=== PATIENT | female | born 1985 | race African-American/Black ===

== ENCOUNTER 2018-08-29 07:30 | Inpatient (IN) | payer OTHER ==
[~2018-08-29] VITALS: Ht 157.5 cm; Wt 81.9 kg
[2018-08-31 05:37] VITALS: BP 118/78; PULSE 96; RESP 18; Ht 157.5 cm; Wt 81.9 kg
[2018-08-31] MEDS ORDERED: PREN1TAB13 PO (05:46)
[2018-08-31] MEDS: LACTATED RINGER'S 1,000 ML IV SCH ×2 (05:58→08:28)
[2018-08-31] MEDS ORDERED: CEFAZOLIN 2 GM/50 ML (PMX) 50 ML IVPB SCH (06:00)
[2018-08-31] MEDS ORDERED: OXYTOCIN 30 UNITS/LR 500 ML IV PRN ×2 (06:00→16:00)
[2018-08-31] MEDS ORDERED: METHYLERGONOVINE 0.2 MG INJ IM PRN ×2 (06:00→16:00)
[2018-08-31] MEDS ORDERED: OXYTOCIN 30 UNITS/LR 500 ML IV SCH (06:00)
[2018-08-31] MEDS ORDERED: CARBOPROST 250 MCG INJ IM PRN ×2 (06:00→16:00)
[2018-08-31] MEDS ORDERED: MISOPROSTOL 200 MCG TAB PR PRN ×2 (06:00→16:00)
--- NOTE | 2018-08-31 07:24 | PREAC ---
Date/Time of Note Date/Time of Note DATE: 08/31/18 TIME: 07:23 Anesthesia Eval and Record Evaluation Time Pre-Procedure Interview DATE: 08/31/18 TIME: 07:23 Age 33 Sex female NPO: 8 hrs Preoperative diagnosis with previous C/S Planned procedure Repeat C/S Past Medical History Past Medical History: None Surgery & Anesthesia Issues No known issue Meds Anticoagulation: No Beta Manuel within 24 hr: No Reason Beta Manuel not given: Pt. not on B-Manuel Reported Medications Pnv95/Ferrous Fumarate/FA ( Vitamins Tablet) 1 Each Tablet, 1 EACH PO, TAB 08/31/18 Current Medications Lactated Ringer's 1,000 ml @ 125 mls/hr Q8H IV Last administered on 08/31/18at 05:58; Admin Dose 125 MLS/HR; Start 08/31/18 at 05:46 Cefazolin Sodium/ Dextrose 50 ml @ 100 mls/hr ONCE IVPB ; Start 08/31/18 at 06:00 Oxytocin/Lactated Ringer's 500 ml @ 125 mls/hr POST IV ; Start 08/31/18 at 06:00 Oxytocin/Lactated Ringer's 500 ml @ 0 mls/hr ONCE PRN IV .VAGINAL BLEEDING; Start 08/31/18 at 06:00 Methylergonovine Maleate (Methergine) 0.2 mg ONCE PRN IM .VAGINAL BLEEDING; Start 08/31/18 at 06:00 Carboprost Tromethamine (Hemabate) 250 mcg ONCE PRN IM .VAGINAL BLEEDING; Start 08/31/18 at 06:00 Misoprostol (Cytotec) 1,000 mcg ONCE PRN IN .VAGINAL BLEEDING; Start 08/31/18 at 06:00 Meds reviewed: Yes Allergies Coded Allergies: No Known Allergy (Unverified , 08/31/18) Allergies Reviewed: Yes Labs/Studies Labs Reviewed: Reviewed by anesthesiologist Result Diagram: 08/31/18 0555 Laboratory Tests 08/31/18 05:55 Blood Bank Test 08/31/18 05:55 Antibody Screen NEGATIVE Blood Type O POSITIVE Rh Immune Globulin Candidate NO test: Positive Pre-procedure Exam Last vitals Vital Signs Date Temp Pulse Resp B/P (MAP) Pulse Ox O2 O2 Flow FiO2 Time Delivery Rate 08/31/18 99.0 96 18 118/78 Room Air 05:37 (91) Airway: Adequate mouth opening Mallampati: Mallampati II Teeth: Normal Lung: Normal Heart: Normal ASA Physical Status ASA physical status: 2 Emergency: None Planned Anesthetic Neuraxial: Spinal Planned Pain Management Sub-arachniod narcotics Pre-operative Attestations Prior to commencing anesthesia and surgery, the patient was re-evaluated, there was verification of: *The patient's identity *The results of appropriate recent lab work and preoperative vital signs *The above evaluation not changing prior to induction *Anesthetic plan, risk benefits, alternative and complications discussed with patient/family; questions answered; patient/family understands, accepts and wishes to proceed. SANKET BROOKS MD Aug 31, 2018 07:24
[2018-08-31] MEDS ORDERED: morphine SULFATE/PF (10 MG/10 ML) INJ ONE (13:44)
[2018-08-31] MEDS ORDERED: OXYTOCIN 30 UNITS/LR 500 ML IV ONE (13:44)
[2018-08-31] MEDS ORDERED: EPHEDrine 25 MG/5 ML SYG ONE (13:45)
[2018-08-31] MEDS ORDERED: METOCLOPRAMIDE 10 MG INJ ONE (13:45)
[2018-08-31] MEDS ORDERED: ONDANSETRON 4 MG INJ ONE ×2 (13:45→16:00)
[2018-08-31] MEDS ORDERED: OXYTOCIN 10 UNIT INJ ONE ×2 (13:45→14:38)
[2018-08-31] MEDS ORDERED: PHENYLephrine 10 MG INJ ONE (14:05)
[2018-08-31] MEDS ORDERED: LACTATED RINGER'S 1,000 ML IV SCH (15:55)
[2018-08-31] MEDS ORDERED: DIPHENHYDRAMINE 50 MG INJ IV PRN ×2 (16:00)
[2018-08-31] MEDS ORDERED: morphine 2 MG INJ IV PRN ×2 (16:00)
[2018-08-31] MEDS ORDERED: EPHEDrine SULFATE 50 MG/5 ML SYG IV PRN (16:00)
[2018-08-31] MEDS ORDERED: ONDANSETRON 4 MG INJ IV PRN ×2 (16:00)
[2018-08-31] MEDS ORDERED: NALOXONE (0.4 MG/ML) INJ IV PRN (16:00)
[2018-08-31] MEDS ORDERED: morphine SULFATE/PF (10 MG/10 ML) INJ SPINAL ONE (16:00)
[2018-08-31] MEDS ORDERED: ZOLPIDEM 5 MG TAB PO PRN (16:00)
[2018-08-31] MEDS ORDERED: OXYCODONE/ACETAMINOPHEN (5/325) TAB PO PRN (16:00)
[2018-08-31] MEDS ORDERED: LANOLIN HPA 1 PKT TOP PRN (16:00)
[2018-08-31] MEDS: KETOROLAC 30 MG INJ IV PRN (16:15)
[2018-08-31 18:00] VITALS: BP 117/61; PULSE 78; RESP 18
[2018-08-31 18:25] VITALS: BP 115/61; PULSE 82; RESP 16
--- NOTE | 2018-08-31 19:13 | PAC ---
Date/Time of Note Date/Time of Note DATE: 08/31/18 TIME: 19:12 Post-Anesthesia Notes Post-Anesthesia Note Last documented vital signs Vital Signs Date Temp Pulse Resp B/P (MAP) Pulse Ox O2 O2 Flow FiO2 Time Delivery Rate 08/31/18 82 16 115/61 97 Room Air 18:25 (79) 08/31/18 97.8 18:00 Activity: WNL Respiratory function: WNL Cardiovascular function: WNL Mental status: Baseline Pain reasonably controlled: Yes Hydration appropriate: Yes Nausea/Vomiting absent: Yes SANKET BROOKS MD Aug 31, 2018 19:12
--- NOTE | 2018-08-31 19:46 | OPPN ---
Date/Time of Note Date/Time of Note DATE: 08/31/18 TIME: 19:42 Operative Report Planned Procedure Free Text/Dictation christos breech presentation Procedure date Aug 31, 2018 Procedure(s) primary low transverse c/s Performed by see signature line Wall And Floor Tiler: MELVIN MARTIN MD 2nd Wall And Floor Tiler none Anesthesiologist: SANKET BROOKS MD Pre-procedure diagnosis IUP 39w2d breech presentation [id number] Anesthesia Type: Xxpjn3c spinal Post-Procedure Post-procedure diagnosis delivered normal male Findings Live Baby [m], Apgars [6] and [9], weight [6lb], position [RSA], [breech presentation] presentation [none]cord. Estimated Blood Loss: 500 - 600 mls Specimen(s) none Grafts/Implant(s) none Complication(s) none GIULIANO FELIPE MD Aug 31, 2018 19:46
--- NOTE | 2018-08-31 19:51 | HP ---
Date/Time of Note Date/Time of Note DATE: 08/31/18 TIME: 19:46 OB - History Hx of Present Free Text/Dictation 33y.o at 39w2d here for primary c/s for breech presentation Her course was unevenful except presentation remain to be breech presentation. admitted for elective primary c/s for breech presentation. Chief Complaint: breech presentation Estimated Due Date: Sep 05, 2018 : 1 Para: 0 Spontaneous : 0 Therapeutic : 0 Care: Good Care Ultrasounds: Normal mid trimester US Obstetrical Complications: None Medical Complications: None Past Family/Social History * Past Medical, Surgical, Family and Obstetric Histories reviewed from chart. Blood Type: Unknown Rubella: immune RPR/VDRL: Negative GBS Status: Negative HBsAG: Negative OB Admission Exam Vital Signs Vital Signs Vital Signs Date Temp Pulse Resp B/P (MAP) Pulse Ox O2 O2 Flow FiO2 Time Delivery Rate 08/31/18 82 16 115/61 97 Room Air 18:25 (79) 08/31/18 97.8 18:00 Physical Exam HEENT: WNL Heart: Rhythm Normal Lungs: Clear, Equal Abdomen: WNL Extremities: Normal Reflexes: Normal Cervical Dilatation: other Effacement: Other Station: Other Membranes: Intact Amniotic Fluid: Unevaluable Heart Rate: 140's Accelerations: Accelerations Present Decelerations: No Decelerations Varibility: Moderate Contractions on Admission: None Last 72 hours Lab Results CBC & BMP 08/31/18 05:55 OB Assessment/Plan Other Assessment: IUP 39w2d breech presentation Plan: Section GIULIANO FELIPE MD Aug 31, 2018 19:51
[2018-08-31 19:55] VITALS: BP 95/54; PULSE 95; RESP 19
[2018-08-31] MEDS: SENNA/DOCUSATE NA (8.6MG/50MG) TAB PO SCH (21:00)
--- NOTE | 2018-09-01 00:42 | OPR ---
DATE OF OPERATION: 08/31/2018 PREOPERATIVE DIAGNOSIS: , 39 weeks 2 days, breech presentation. POSTOPERATIVE DIAGNOSIS: , 39 weeks 2 days, breech presentation. Bandar breech. PROCEDURE: Primary low transverse section. ANESTHESIA: Spinal. ANESTHESIOLOGIST: Luis Edwards MD SURGEON: Katelyn Mcnally MD SPECIAL EDUCATION ADMINISTRATOR: Darci Rivera MD ESTIMATED BLOOD LOSS: Approximately 520. PROCEDURE: Under proper induction of spinal anesthesia, the patient was placed in the frog position. Sarabia catheter was introduced into the bladder under sterile condition and repositioned to supine. Abdominal wall was prepped and draped in usual aseptic manner. A Pfannenstiel incision was made. T he incision was carried down through the subcutaneous tissue to the anterior recti fascia, which was incised transversely in length of the incision. Fascial flap was created by blunt and sharp dissecti on of tendinous attachment cephalad and caudad to rectus muscle split, and the peritoneal cavity was entered. Low portion of the uterus was exposed. A transverse incision was made above the uterovesic al reflection. Incision was carried down layer by layer, reached the amniotic membrane, ruptured, an d revealed clear amniotic fluid. Normal male infant was born from the right sacral anterior position with assisted breech extraction. The cord was clamped after the milk down because the tone was down in patients so right away then handed to the respiratory care personnel without waiting 30 sec onds instead milked down the blood and cut and handed to the respiratory care personnel, and the cord blood was obtained. After the section of cord was obtained, placenta removed manually. Cavity was completely explored after uterus was exteriorized. Uterine incision was closed using #1 chromic catg ut in continuous manner, second layer using 0 chromic catgut in continuous manner thus imbricating th e first layer of closure. Uterus was relocated into the abdominal cavity after irrigation done, and the uterine incisional site was checked, which was intact and sponge count correct. The parietal per itoneum closed with 0 chromic catgut in continuous manner and muscle closed with 0 chromic catgut in continuous manner. After adequate hemostasis done and the fascia closed with #1 Vicryl in continuous manner in 2 segments. Subcutaneous layer was irrigated. This layer was approximated with 2-0 plain in continuous manner after the adequate hemostasis was secured. Skin closed with 3-0 Monocryl in flor bcuticular manner. After the Steri-Strip applied, pressure dressing applied. Estimated blood loss a pproximately 520 mL. The patient withstood procedure and was sent to the recovery room in stable con dition. Urine output approximately 200 mL. Clear. Dictated By: KATELYN BARRETT/LUIS Conf#: [id number] DID#: [id number] CC: KATELYN MCNALLY MD;*EndCC*
[2018-09-01] MEDS: LACTATED RINGER'S 1,000 ML IV SCH ×4 (03:19→21:46)
[2018-09-01 04:00] VITALS: BP 101/54; PULSE 97; RESP 21
[2018-09-01] MEDS: KETOROLAC 30 MG INJ IV PRN (05:32)
[2018-09-01 07:30] VITALS: BP 111/58; PULSE 85; RESP 18
[2018-09-01] MEDS: SENNA/DOCUSATE NA (8.6MG/50MG) TAB PO SCH ×2 (09:00→21:23)
--- NOTE | 2018-09-01 09:07 | OPPN ---
Date/Time of Note Date/Time of Note DATE: 09/01/18 TIME: 09:03 Anesthesia Follow up Anesthesia Follow up Last documented vital signs Vital Signs Date Temp Pulse Resp B/P (MAP) Pulse Ox O2 O2 Flow FiO2 Time Delivery Rate 09/01/18 99.0 97 21 101/54 97 Room Air 04:00 (70) Respiratory function: WNL Cardiovascular function: WNL Comments Postoperative pain in good control with spinal duramorph. Vital signs stable. No specific complaint from patient. SANKET BROOKS MD Sep 01, 2018 09:07
[2018-09-01 11:30] VITALS: BP 121/64; PULSE 84; RESP 18
[2018-09-01 15:45] VITALS: BP 107/55; PULSE 82; RESP 18
[2018-09-01 16:00] VITALS: BP 122/65; PULSE 74; RESP 20
[2018-09-01] MEDS: IBUPROFEN 600 MG TAB PO SCH ×2 (18:16→23:53)
[2018-09-01 19:45] VITALS: BP 110/72; PULSE 81; RESP 18
[2018-09-02 04:10] VITALS: BP 106/54; PULSE 86; RESP 18
[2018-09-02] MEDS: LACTATED RINGER'S 1,000 ML IV SCH (05:46)
[2018-09-02] MEDS: IBUPROFEN 600 MG TAB PO SCH ×3 (05:59→17:55)
[2018-09-02 08:30] VITALS: BP 100/57; PULSE 79; RESP 17
[2018-09-02] MEDS: SENNA/DOCUSATE NA (8.6MG/50MG) TAB PO SCH ×2 (09:09→22:20)
[2018-09-02] MEDS: OXYCODONE/ACETAMINOPHEN (5/325) TAB PO PRN ×3 (13:07→22:20)
--- NOTE | 2018-09-02 15:05 | PD.PPDC ---
SUPPORT MANAGER Discharge Instruction Diagnosis Nboei5Iu Final Diagnosis: Innyj9a S/P Condition Lvhlo8Po Patient Condition: Gqjpv4c Stable Diet Wxvjq5Ka Diet: Swqtz3x Resume Regular Diet Activity/Restrictions Afrkw2Kj Activity: Mvern4v May Shower Xaqcw5Pk Restrictions: Xggrm0j No Sexual Activity Nothing in the Vagina No [place] No Tampons, douche Follow-up Follow-up with Physician: 2, Week/Weeks Return to clinic for Zftsk3Kt LOW PRESSURE FIRER Instructions: Wdcrx2e Fever greater than 101 Chills Worsening abdominal pain Excessive Vaginal Bleeding More than 2 pads per hour Unable to tolerate diet Zceaw0Hv OB Instructions: Fbsjk7h Breast Tenderness Depression Blurried Vision Headache GIULIANO FELIPE MD Sep 02, 2018 15:05
--- NOTE | 2018-09-02 15:09 | PD.PPDC ---
PAPER BALING MACHINE OPERATOR Discharge Instruction Diagnosis Jvgew2Dk Final Diagnosis: Aigvx7w s/p breech presentation, s/p primary c/s Condition Knbmr7Oy Patient Condition: Syphp1y Stable Diet Bakoz6Wp Diet: Prdpg5y Resume Regular Diet Activity/Restrictions Mvdyh2Lh Activity: Keizd2j May Shower Dqsvw2Rp Restrictions: Tmtku5l No Exercising No Lifting Minimize Stair-climbing No Sexual Activity Nothing in the Vagina No Downs No Tampons, douche Wound/Drain Care Instructions Rmpxs5An Wound/Drain Care Instructions: Gklid9r Wash with soap and water Keep clean and dry Follow-up Follow-up with Physician: 2, Week/Weeks Return to clinic for Gjqeu8Ik AUTOMATION AND CONTROLS MANAGER Instructions: Niqqd0b Fever greater than 101 Chills Worsening abdominal pain Excessive Vaginal Bleeding More than 2 pads per hour Unable to tolerate diet Nrigx7Dq OB Instructions: Baqfo7h Breast Tenderness Depression Blurried Vision Headache Kzefb9Em Surgical Instructions: Illfp7d Incisional Drainage Incisional Redness GIULIANO FELIPE MD Sep 02, 2018 15:09
--- NOTE | 2018-09-02 16:09 | QN ---
Documentation Comment passing flatus no B.M vss afebrile abdomensoft wound dry calf neg lochia min A stable post c/s #2 P d/s home in am GIULIANO FELIPE MD Sep 02, 2018 16:09
--- NOTE | 2018-09-02 16:10 | QN ---
Documentation Comment passing flatus vss afebrle abdomen soft wound dry calf neg for tenderness lochia min A stable post c/#2 P discharge home in am GIULIANO FELIPE MD Sep 02, 2018 16:10
[2018-09-02 16:15] VITALS: BP 110/76; PULSE 76; RESP 18
[2018-09-02 20:00] VITALS: BP 121/65; PULSE 80; RESP 18
[2018-09-03] MEDS: IBUPROFEN 600 MG TAB PO SCH ×3 (00:12→11:46)
[2018-09-03 04:15] VITALS: BP 115/68; PULSE 80; RESP 20
[2018-09-03] MEDS: OXYCODONE/ACETAMINOPHEN (5/325) TAB PO PRN ×2 (06:03→11:46)
--- NOTE | 2018-09-03 07:53 | DS ---
Date/Time of Note Date/Time of Note DATE: 09/03/18 TIME: 07:52 Obstetrical Discharge Record Final Diagnosis Final Diagnosis: Term delivered Section Section: Primary Complications Augmentation: No Induction: No Rupture of Membranes: No Condition on Discharge Physical Assessment Last Vitals: vss afebrile Voiding: Yes Bowel Movement: Yes Breast: Soft, non-tender Fundus: Firm Abdomen and Incision: soft wound dry Episiotomy: n/a Calf Tenderness: No Patient Condition: Stable GIULIANO FELIPE MD Sep 03, 2018 07:53
[2018-09-03 08:15] VITALS: BP 113/76; PULSE 82; RESP 18
[2018-09-03] MEDS ORDERED: DIPHTH/TET/ACEL PERTUSS (ADULT) 0.5 ML VIAL IM* ONE (09:00)
[2018-09-03] MEDS: SENNA/DOCUSATE NA (8.6MG/50MG) TAB PO SCH (09:20)
--- NOTE | 2018-09-04 12:46 | DELSUM ---
Delivery Summary A-C Datetime Report Generated by CPN: 09/04/2018 12:46 DELIVERY PERSONNEL Pole Shaver Helper: Olmedo-Chin, Estrelita MATERNAL INFORMATION Delivery Anesthesia: Spinal Medications in Delivery: SEE ANESTHESIA RECORDS Delivery QBL (ml): 500 Placenta Cultured: No Maternal Complications: None RN Comments: RH-0 POSITIVE,GBS NEG LABOR SUMMARY EDC: 09/03/2018 00:00 No. Babies in Womb: 1 Attempted: No Labor Anesthesia: None LABOR INFORMATION Reason for Induction: Not Applicable Oxytocin: N/A Group B Beta Strep: Negative Antibiotics # of Doses: 1 Steroids Given: None Reason Steroids Not Administered: Not Applicable MEMBRANES Membranes Rupture Method: Artificial Rupture of Membranes: 08/31/2018 14:10 Length of Rupture (hr): 0.02 STAGES OF LABOR Stage 3 hr: 0 Stage 3 min: 1 VAGINAL DELIVERY Episiotomy: None CSECTION DELIVERY Primary Indication: Breech Presentation Secondary Indication: N/A CSection Urgency: Non Elective CSection Incidence: Primary Labor: No Labor Elective: Elective CSection Incision: Lower Uterine Transverse BABY A INFORMATION Infant Delivery Date/Time: 08/31/2018 14:11 Method of Delivery: Born in Route : No : N/A Forceps: N/A Vacuum Extraction: N/A Shoulder Dystocia : N/A SHOULDER DYSTOCIA BABY A Delivery Date/Time: 08/31/2018 14:11 PRESENTATION/POSITION BABY A Presentation: Breech Cephalic Presentation: N/A PLACENTA INFORMATION BABY A Placenta Delivery Time : 08/31/2018 14:12 Placenta Method of Delivery: Manual Removal Placenta Status: Delivered SCORES BABY A Heart Rate 1 min: >100 bpm Resp Effort 1 min: Absent Reflex Irritability 1 min: Cough/Sneeze/Pulls Away Muscle Tone 1 min: Active Motion Color 1 min: Blue/Pale Resuscitation Effort 1 min: Tactile Stimulation; Oxygen; PPV/NCPAP SCORE 1 MIN: 6 Heart Rate 5 min: >100 bpm Resp Effort 5 min: Good Cry Reflex Irritability 5 min: Cough/Sneeze/Pulls Away Muscle Tone 5 min: Active Motion Color 5 min: Body Chilo, Extremit Blue SCORE 5 MIN: 9 INFANT INFORMATION BABY A Gestational Age at Delivery: 39.4 Gestational Status: Full Term- 39- 40.6 Weeks Infant Outcome : Liveborn Condition : Stable Sex: Male IDENTIFICATION/MEDS BABY A ID Band Number: [id number] ID Band Location: Right Leg; Left Arm Sensor Applied: Yes Sensor Number: [id number] Sensor Location : Cord Clamp Vitamin K Given : Deferred by Parents Erythromycin Given: Not Given WEIGHT/LENGTH BABY A Infant Birthweight (gm): 2710 Infant Weight (lb): 6 Weight (oz): 0 Length (in): 17.50 Length (cm): 44.45 CORD INFORMATION BABY A No. Cord Vessels: 3 Cord Blood Taken: Yes Banking/Donate Info: NONE Infant Suction: Mouth; Nose
== END 2018-09-03 12:45 | disposition home or self-care (01) | DRG 788 ==
LOC: L-D 08-31 05:25 → PP1 08-31 18:00
PROVIDERS: ADMIT Obstetrics & Gynecology; ATTEND Obstetrics & Gynecology
PROC: 3E033VJ Introduction of Other Hormone into Peripheral Vein, Percutaneous Approach (ICD-10-PCS; 2018-08-31)
PROC: 10D00Z1 Extraction of Products of Conception, Low, Open Approach (ICD-10-PCS; principal; 2018-08-31 07:30)
DX: O32.1XX0 Maternal care for breech presentation, not applicable or unspecified (principal); Z3A.39 39 weeks gestation of pregnancy; Z37.0 Single live birth
CPT/HCPCS: 76815; 80307; 85025; 85610; 85730; 86592; 86850; 86900; 86901; 87340; 99464; J0690; J1885; J2274; J2405; J2590; J2765; J7120